=== PATIENT | male | born 1975 | race Caucasian/White ===

== ENCOUNTER 2022-01-09 15:47 | Emergency (ER) | payer MEDICAID ==
[~2022-01-09] VITALS: Ht 144.8 cm; Wt 72.7 kg
--- NOTE | 2022-01-09 20:59 | NUR ---
PT ROOMED IN BED 9. ASSUMED CARE OF PT.
[2022-01-09 22:46] VITALS: BP 158/109
== END 2022-01-09 22:48 | disposition home or self-care (01) ==
LOC: ER 15:48
DX: R00.0 Tachycardia, unspecified (principal); R61 Generalized hyperhidrosis; Z88.5 Allergy status to narcotic agent; Z88.8 Allergy status to other drugs, medicaments and biological substances
CPT/HCPCS: 93005; 99283

== ENCOUNTER 2023-12-31 09:27 | Emergency (ER) | payer MEDICARE, MEDICAID ==
[~2023-12-31] VITALS: Ht 147.3 cm; Wt 82.5 kg
[2023-12-31] MEDS: ketorolac trometh 30MG/ML vial 30 MG/ML VIAL IM ONE (09:55)
[2023-12-31] MEDS ORDERED: LIDO700A32 TOP (11:21)
[2023-12-31 11:30] VITALS: BP 131/91; PULSE 75; RESP 16; TEMP 98; O2SAT 97
== END 2023-12-31 11:32 | disposition home or self-care (01) ==
LOC: ER 09:27
DX: M54.50 Low back pain, unspecified (principal); M79.604 Pain in right leg; Z88.5 Allergy status to narcotic agent; Z88.8 Allergy status to other drugs, medicaments and biological substances
CPT/HCPCS: 72100; 96372; 99283; J1885